=== PATIENT | male | born 1955 | race Caucasian/White ===

== ENCOUNTER → 2016-12-08 | Outpatient (CLI) | payer OTHER ==
[~2016-12-08] MED LIST: ALBUTEROL SULF0.5 M1 NEB; ALBUTEROL SULFAT6 M1 INH; ASPIRIN81 M1 PO; CARTIA XT180 MG PO; CELEBREX100 MG PO; CELEBREX200 MG PO; DIGOXIN0.25 MG PO; DILTIAZEM180 MG PO; DULE1ARO INH; DULE1ARO1 INH; DYAZIDE 25 MG-31 CAP PO; Diltiazem180 MG PO; ECOTRIN81 M1 PO; GABAPENTIN TAB600 MG PO; GABAPENTIN600 MG PO; HYDROCODONE BIT1 T11 PO; JALYN 0.5-0.41 EACH PO; JALYN PO; LIPITOR40 MG PO; LISINOPRIL HCTZ1 TA1 PO; LISINOPRIL20 MG PO; LISINOPRIL40 MG PO; MECLIZINE HCL25 M2 PO; METFORMIN500 MG PO; METOPROLOL25 MG PO; Meclizine25 MG PO; PRADAXA150 MG PO; TOVIAZ8 MG PO; TRAMADOL HCL50 MG PO; VIBRAMYCIN100 MG PO; VICTOZA; XARE20MG PO; ZOFRAN4 MG PO
== END | disposition home or self-care (01) ==
LOC: RAD 15:19
DX: M51.36 Other intervertebral disc degeneration, lumbar region (principal)

== ENCOUNTER 2017-01-25 08:43 | Emergency (ER) | payer OTHER ==
[~2017-01-25] VITALS: Ht 172.7 cm; Wt 136.1 kg
[2017-01-25] MEDS ORDERED: Diltiazem180 MG PO (09:16)
[2017-01-25] MEDS ORDERED: Percocet 325 MG1 TAB PO (09:19)
[2017-01-25 09:46] LABS: BASO % 0.6 % (0.0-1.0); EOS # 0.3 10*3/uL (0.0-0.4); EOS % 3.5 % (1.0-4.0); HEMATOCRIT 39.1 % (42.0-52.0); HEMOGLOBIN 12.8 g/dl (14.0-18.0); LYMPH # 1.4 10*3/uL (1.3-4.4); MEAN CELL VOLUME 87.5 fl (80.0-94.0); MEAN CORPUSCULAR HGB 28.6 pg (27.0-31.0); MEAN CORPUSCULAR HGB CONC 32.7 g/dl (33.0-37.0); MONO # 0.4 10*3/uL (0.1-1.0); NEUT # 4.9 10*3/uL (2.3-7.9); NEUT % 69.3 % (47.0-73.0); PLATELET COUNT AUTOMATED 320 10*3/uL (130-400); RED BLOOD COUNT 4.47 10*6/uL (4.50-5.90); RED CELL DISTRI WIDTH 14.6 % (0-14.5); WHITE BLOOD COUNT 7.1 10*3/uL (4.8-10.8)
[2017-01-25 10:03] LABS: ALBUMIN 2.9 gm/dl (3.1-4.5); ALKALINE PHOSPHATASE 75 U/L (45-117); BUN 10 mg/dl (7-24); CHLORIDE 105 mmol/L (98-107); CREATININE 0.75 mg/dL (0.70-1.30); SGOT/AST 13 IU/L (3-35); SGPT/ALT 15 U/L (12-78); SODIUM 140 mmol/L (136-145); TOTAL PROTEIN 6.6 gm/dL (6.4-8.2)
[2017-01-25 11:41] VITALS: BP 138/86
== END 2017-01-25 12:01 | disposition home or self-care (01) ==
LOC: ED 08:43
PROVIDERS: Nurse Practitioner Family
DX: R51 Headache (principal); Z87.891 Personal history of nicotine dependence; Z95.0 Presence of cardiac pacemaker; Z98.890 Other specified postprocedural states; Z90.89 Acquired absence of other organs; Z79.899 Other long term (current) drug therapy; Z79.82 Long term (current) use of aspirin

== ENCOUNTER 2018-04-25 15:42 | Inpatient (IN) | payer MEDICARE, OTHER ==
[~2018-04-25] VITALS: Ht 175.2 cm; Wt 138.9 kg
--- NOTE | ~2018-04-25 | DS ---
[place], [place] DISCHARGE SUMMARY NAME: WALTER SOSA UNIT #: [id number] ROOM: 518 DOCTOR: HARSHAD DESOUZA MD BIRTHDATE: [birth year] DOS: 04/28/2018 DISCHARGE DIAGNOSES: 1. Benign essential hypertension. 2. Hypotensive episode. 3. Hypovolemia from viral syndrome. 4. Type 2 diabetes mellitus. 5. Morbid obesity. 6. Chronic atrial fibrillation. 7. Diabetic peripheral polyneuropathy. 8. Type 2 diabetes mellitus. 9. Chronic lower back pains. 10. Mixed hyperlipidemia. 11. Pacemaker placement. 12. Sleep apnea. The patient uses CPAP. 13. Asthma, persistent, moderate. HOSPITAL COURSE: The patient presented with dizziness, feeling sick and weak and unwell and he was found to be hypotensive with a blood pressure of 87/50. The patient admitted and his blood pressure medications were discontinued initially. Later on, metoprolol was and lisinopril was reintroduced and his blood pressures are normal, but staying on the lower normal side. The patient is starting to feel much better and was evaluated by Cardiology and cleared for discharge to home without the Cardizem. The patient is feeling much better and will be discharged to home. 1. Morbid obesity, generalized, adult failure to thrive. The patient worked with physical therapy. 2. Chronic atrial fibrillation. The patient anticoagulated and heart rates are controlled with metoprolol. 3. Pacemaker placement. 4. Persistent asthma, moderate, treated with bronchodilators. 5. Mixed hyperlipidemia, followed and treated. LABORATORY DATA: Normal serum electrolytes, hemoglobin of 12. Normal CBC. Chest x-ray without acute abnormality. DISCHARGE MANAGEMENT: Metoprolol 25 mg b.i.d., Tylenol p.r.n., Formoterol steroid inhaler twice a day, aspirin 81 mg a day, metformin 500 mg b.i.d., DuoNeb q.i.d., Pulmicort 0.5 mg b.i.d., gabapentin 600 mg q.i.d., Xarelto 20 mg a day. Followup at the office with me next week. [place], [place] DISCHARGE SUMMARY NAME: WALTER SOSA UNIT #: [id number] ROOM: 518 DOCTOR: HARSHAD DESOUZA MD BIRTHDATE: [birth year] HARSHAD DESOUZA MD CM:ZAK [id number] HARSHAD DESOUZA MD 05/08/18 0843 interface
--- NOTE | ~2018-04-25 | WRIGHTHP ---
[place], [place] PATIENT HISTORY AND PHYSICAL EXAM NAME: WALTER SOSA [facility] #: [id number] UNIT #: [id number] ROOM: 518 DOCTOR: HARSHAD DESOUZA MD BIRTHDATE: [birth year] DOS: 04/25/2018 HISTORY OF PRESENT ILLNESS: The patient presented to my office yesterday feeling sick, dizzy, weak and unwell and he was found to be hypotensive with the systolic blood pressure of 87 over diastolic of 50. The patient was admitted on suspicion of hypotension, sepsis and feeling sick and his blood pressure medications were stopped and he was admitted and started on hydration on normal saline. A Cardiology consult has been obtained. Cardiac enzymes were ordered. After admission, the patient is starting to feel better and has been working with physical therapy. PAST MEDICAL HISTORY: 1. Diabetic peripheral polyneuropathy. 2. Type 2 diabetes mellitus. 3. Morbid obesity. 4. Mixed hyperlipidemia. 5. Chronic lower back pains. 6. Pacemaker placement. 7. Benign essential hypertension. 8. Sleep apnea. 9. Chronic atrial fibrillation. 10. Asthma, which is persistent, mild to moderate. REVIEW OF SYSTEMS: CARDIOVASCULAR: No chest pains, but the patient is hypotensive. RESPIRATORY: No increasing shortness of breath. GASTROINTESTINAL: No nausea, vomiting, diarrhea, constipation. FAMILY HISTORY: Noncontributory. MEDICATIONS: Aspirin, metformin, Xarelto, diltiazem, Lipitor, lisinopril, metformin. PHYSICAL EXAMINATION: GENERAL: Alert and oriented x 3, generalized weakness and morbid obesity. VITAL SIGNS: Blood pressure 110/68, heart rate 88 beats per minute, breathing 18 times per minute, temperature 98 degrees Fahrenheit. HEENT AND NECK: Extraocular movements are intact. Sclerae are anicteric. Oral mucosa is moist and clean. No obvious facial weakness. Neck is supple without any lymphadenopathy. No thyromegaly. No JVD. No carotid arterial bruits. LUNGS: Clear to auscultation. No wheezing. No rhonchi. CARDIOVASCULAR SYSTEM: Heart rate is regular in rate and rhythm. S1 and S2 normally audible. No significant murmur or any other abnormal cardiac sounds. ABDOMEN: Soft, nontender. No obvious organomegaly. Bowel sounds are present. No obvious herniation. EXTREMITIES: Without significant cyanosis or edema. Warm to touch. CENTRAL NERVOUS SYSTEM: Alert and oriented x 3. Cranial nerves II-XII are intact. Speech is normal. The patient is able to move all extremities. Normal muscle strength. Deep tendon reflexes are equal on both sides. Plantars were downgoing. [place], [place] PATIENT HISTORY AND PHYSICAL EXAM NAME: WALTER SOSA UNIT #: [id number] ROOM: 518 DOCTOR: HARSHAD DESOUZA MD BIRTHDATE: [birth year] IMPRESSION: 1. Significant hypotension. Blood pressure medications have been stopped and Cardiology consult obtained. No signs of acute myocardial infarction so far. 2. Suspected sepsis with no signs of sepsis. The patient apparently was hypovolemic and is being treated with normal saline infusion. I will give him 1 more liter of normal saline today. All of his blood pressure medications are on hold. 3. Benign essential hypertension with blood pressure staying on the low side, all blood pressure medications have been held back. 4. Chronic atrial fibrillation. The patient is anticoagulated with Xarelto. Heart rates are controlled. HARSHAD DESOUZA MD CM:HISPHYS:PATIENT HISTORY AND PHYSICAL EXAMINATION [id number] HARSHAD DESOUZA MD 05/08/18 0842 interface
--- NOTE | ~2018-04-25 | CON ---
[place], [place] REPORT OF CONSULTATION [id number] UN[facility] #: [id number] ROOM: 518 DOCTOR: ALIZA DOUGHERTY MD BIRTHDATE: [birth year] DOS: 04/26/2018 CARDIOLOGY CONSULTATION REASON FOR CONSULTATION: Low blood pressure. HISTORY: The patient is a 63-year-old man who had previously been followed by the [facility]. He was found to have atrial fibrillation with both fast and slow heart rate responses. He was anticoagulated, placed on rate limiting medications, and given a VVI pacemaker. Reportedly, this is a [employer] device. He was subsequently lost to their followup. He was hospitalized at the [facility] in 03/2018 for atypical chest pain. A pharmacologic stress test done at that time showed normal left ventricular size, wall motion and function with an ejection fraction of 82% and no evidence for ischemia. The patient was otherwise well until the last several days. He began feeling weak, lightheaded and tired. He developed a nonproductive cough. He denied fevers, chills or sweats and denied any peripheral edema, orthopnea or PND. He was seen as an outpatient by Dr. Campbell who noted that his blood pressure was 87/50. He was therefore hospitalized for further management. He was treated for SIRS with a fluid bolus. In addition, his antihypertensive medications were withheld. He was not placed on antibiotics. With fluid resuscitation, he does feel better, although his cough remains. His blood pressure has improved. PAST HISTORY: Includes: 1. Paroxysmal atrial fibrillation with fast and slow heart rate response (tachybrady syndrome). 2. Type 2 diabetes mellitus. 3. Hyperlipidemia. 4. Essential hypertension. 5. Morbid obesity. 6. Obstructive sleep apnea, on CPAP. 7. Status post placement of a single chamber VVI pacemaker several years ago. 8. Echocardiogram on 06/09/2016, normal left ventricular size, wall motion and function with ejection fraction 55-60%. Sigmoid septum, stage 2 diastolic relaxation abnormalities, normal right ventricular size and function. Marked left atrial enlargement, trace aortic insufficiency. Normal mitral valve structure and function, mild tricuspid insufficiency with normal right ventricular systolic pressures. 9. Pharmacologic stress test on 03/29/2018, normal left ventricular size, wall motion and function with ejection fraction over 75%. Normal perfusion low risk exam. 10. History of type 2 diabetes mellitus with peripheral neuropathy. 11. Morbid obesity. 12. Hyperlipidemia. 13. Essential hypertension. MEDICATIONS: Prior to admission, Dulera by inhalation q. 12 hours, aspirin 81 [place], [place] REPORT OF CONSULTATION NAME: WALTER SOSA UNIT #: [id number] ROOM: 518 DOCTOR: ALIZA DOUGHERTY MD BIRTHDATE: [birth year] mg daily, atorvastatin 40 mg daily, diltiazem CD 180 mg b.i.d., Flavia 0.5/0.4 capsules daily, gabapentin 600 mg q.i.d., lisinopril with hydrochlorothiazide 1-1/2 tablets daily, metformin 500 mg b.i.d., metoprolol 25 mg b.i.d. and rivaroxaban 20 mg daily. ALLERGIES: The patient has no known drug allergies. FAMILY HISTORY: Negative for early coronary artery disease. REVIEW OF SYSTEMS: The patient denies diplopia or loss of vision. He denies focal weakness. He denies lightheadedness or syncope, but he has been weak and unsteady for the last several days. He denies fevers, chills or sweats. He denies nausea or vomiting. He denies change in bowel or bladder habits. He denies hemoptysis or hematemesis. He denies any skin rashes. He denies blood in his stools or urine. He denies any peripheral edema. He denies any hot or swollen joints. The remainder review of systems is negative except as noted above. SOCIAL HISTORY: The patient does not currently smoke or consume significant amounts of alcohol. PHYSICAL EXAMINATION: GENERAL: The patient is an obese white male who is awake, alert and oriented. VITAL SIGNS: Pulse is 88 and irregular, blood pressure is 110/68. He is afebrile. He weighs 138.9 kg and has a body mass index of 45.3. HEENT: Normocephalic and atraumatic. Extraocular muscles are intact. Sclerae are clear. Pupils are equal, round and react to light. The oral mucosa is moist. Tongue is midline. NECK: Supple. He has no jugular distention or hepatojugular reflux. Carotids are full. There are no bruits. He has no neck or supraclavicular masses and no thyromegaly. LUNGS: Respirations are unlabored. His chest has decreased breath sounds at the bases, but no wheezes or rales. He has no presacral edema or chest wall tenderness. CARDIOVASCULAR: His heart has a relatively regular rhythm with frequent premature contractions. No murmurs, rubs or gallops are heard. The PMI is not displaced. There is no precordial heave, lift or thrill. ABDOMEN: Obese, but otherwise benign, without masses, organomegaly or bruits. EXTREMITIES: Showed no significant edema. He does have hyperpigmented plaques on his shins bilaterally. Pedal pulses were markedly diminished in the feet. DIAGNOSTIC DATA: I reviewed his electrocardiogram, which showed atrial fibrillation with an occasional paced beat. He has nonspecific ST and T-wave changes, but no acute ST elevation. Chest x-ray is pending. LABORATORY DATA: Hemoglobin is 13.5 with a white count of 9100 and a platelet count of 411,000. Sodium is 138, potassium 3.7, chloride 104, CO2 of 25, BUN 24, creatinine 1.10. Serial troponin levels are normal. [place], [place] REPORT OF CONSULTATION NAME: WALTER SOSA UNIT #: [id number] ROOM: 518 DOCTOR: ALIZA DOUGHERTY MD BIRTHDATE: [birth year] IMPRESSIONS: 1. Hypotension. The patient shows no signs of heart failure, anemia, or any recent change in his medications. He may have been dehydrated on admission, but has received fluid boluses and now appears euvolemic. With his history of several days of malaise along with a cough, it is likely that this does represent a viral syndrome. 2. History of tachybrady syndrome with permanent atrial fibrillation and presence of VVI pacemaker. 3. Diabetes. 4. Hypertension. 5. Obstructive sleep apnea, on CPAP. 6. Morbid obesity. 7. Hyperlipidemia. 8. Other diagnoses as listed above. PLAN: The patient has already received fluid boluses and seems to be feeling well. We will obtain a chest x-ray to assess for causes of his cough. His recent stress test showed normal left ventricular size and function and an echocardiogram a year ago showed no significant structural heart disease, so one will not be repeated now unless he shows changes on his chest x-ray, which indicate further evaluation. For now, I think that supportive care is appropriate. We will reintroduce his beta daria and monitor his blood pressure. If he tolerates that, then we will reintroduce diltiazem in order to continue to control his heart rate. We will follow him with his primary physicians and I thank Dr. Campbell for asking our advice regarding his management. ALIZA DOUGHERTY MD CM:CONSTR:REPORT OF CONSULTATION 1303 04/26/18 1755 interface
--- NOTE | ~2018-04-25 | PR ---
[place], [place] PROGRESS NOTE [id number] UNIT #: [id number] ROOM: 518 DOCTOR: HARSHAD DESOUZA MD BIRTHDATE: [birth year] DOS: 04/27/2018 SUBJECTIVE: The patient is feeling much better. His weakness has improved. OBJECTIVE: VITAL SIGNS: Blood pressure 134/86, heart rate of 86 beats per minute, afebrile. GENERAL APPEARANCE: The patient is alert and oriented x 3, in no visible distress. Obesity. HEENT AND NECK: Exam within normal limits. CARDIOVASCULAR SYSTEM: Heart rate is regular in rate and rhythm. S1 and S2 normally audible. LUNGS: Clear to auscultation. ABDOMEN: Soft, nontender. No obvious organomegaly. Bowel sounds are present. EXTREMITIES: Without significant cyanosis or edema. SKIN: Chronic skin changes in his lower extremities. IMPRESSION: 1. Benign essential hypertension, treated and controlled. Diltiazem held back for hypotension. 2. Hypotension, resolved with stopping diltiazem, metoprolol was restarted. 3. Probable viral syndrome. Generalized weakness, improving with treatment. 4. Type 2 diabetes mellitus. Blood sugars being monitored and treated. 5. Chronic atrial fibrillation with controlled heart rates with metoprolol. The patient anticoagulated with Xarelto. HARSHAD DESOUZA MD CM:PNTRANS 06 52 HARSHAD DESOUZA MD 04/27/181951 interface
--- NOTE | ~2018-04-25 | PR ---
[place], [place] PROGRESS NOTE NAME: WALTER SOSA [facility] #: [id number] UNIT #: [id number] ROOM: 518 DOCTOR: ALIZA DOUGHERTY MD BIRTHDATE: [birth year] DOS: 04/27/2018 CARDIOLOGY PROGRESS NOTE SUBJECTIVE: The patient was seen at his bedside today 04/27/2018 for followup of his sick sinus syndrome, permanent atrial fibrillation, and VVI pacemaker. He is a 63-year-old man who had previously been followed by the [facility]. He was admitted to the hospital on this occasion with malaise, symptoms of a viral infection, and hypotension. He has responded to fluid boluses and withdrawal of blood pressure lowering medications. Yesterday, I did reintroduce his beta daria and he is tolerating that without difficulty. He is feeling better and anxious for discharge. 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 He asked if we could arrange for his cardiac and pacer followup locally. PHYSICAL EXAMINATION: VITAL SIGNS: Today, his pulse is 77 and irregularly irregular, blood pressure is 110/76. He is afebrile. He weighs 138.9 kg and has a body mass index of 45.3. NECK: Supple. He has no jugular distention. Carotids are full without bruits. He has no neck or supraclavicular masses. LUNGS: Respirations are unlabored. His chest is clear to auscultation and percussion. HEART: Has an irregularly irregular rhythm without murmurs or gallops. ABDOMEN: Benign. EXTREMITIES: Showed no edema. Peripheral pulses are palpable in the feet. He does have hyperpigmented plaques on his shins bilaterally. LABORATORY DATA: Hemoglobin is 12.6, white count 7900, platelet count 393,000. Sodium 143, potassium 4.8, BUN 20, creatinine 0.97. IMPRESSION: 1. Hypotension, most likely due to viral syndrome -- resolved. 2. History of tachybrady syndrome with permanent atrial fibrillation and presence of a VVI pacemaker. 3. Type 2 diabetes mellitus. 4. Hypertension. 5. Obstructive sleep apnea, on CPAP. 6. Morbid obesity. 7. Hyperlipidemia. PLAN: I would not make any changes in his medications further at this time. For now, I would keep him on beta blockers alone for rate control and withhold diltiazem unless his heart rate increases as an outpatient. He will continue anticoagulation with rivaroxaban for stroke prophylaxis. From my perspective, he can be discharged to home and should follow up with us in the office in 1-2 months. We can arrange for him to have pacer checks either locally or in [place] after that. [place], [place] PROGRESS NOTE NAME: WALTER SOSA UNIT #: [id number] ROOM: 518 DOCTOR: FARHAT LAND,ALIZA BIRTHDATE: [address] Campbell for asking our advice regarding his care. We will remain available during this hospitalization if needed. He may be discharged any time from our perspective, however. ALIZA DOUGHERTY MD CM:PNTRANS [id number] ALIZA DOUGHERTY MD 04/27/18 1259 interface
--- NOTE | ~2018-04-25 | EKG ---
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
[~2018-04-25 15:42] MED LIST changes: +Percocet 325 MG1 TAB PO
[2018-04-25 16:27] VITALS: BP 109/68
--- NOTE | 2018-04-25 16:30 | NUR ---
CCADMA 63, admitted to , under the services of Dr. LYLY LAND,HARSHAD Cardoza with a diagnosis of HYPOTENSION. Chief complaint is DENIES C/O. Patient arrived via wheel chair from [place]. Monitor applied. Initial assessment completed. Vital signs taken and recorded. DR. LYLY LAND,HARSHAD Cardoza notified of admission to the unit. Orders received. See assessment for past medical history, medications and allergies. Patient and/or family oriented to unit. [facility] visitation policy reviewed. Clothing/patient valuable form completed. MELQUIADES MODI
--- NOTE | 2018-04-25 17:09 | NUR ---
DR. GRAHAM NOTIFIED OF CONSULT.
[2018-04-25 20:00] VITALS: BP 107/67
[2018-04-26] VITALS: BP 109/64
[2018-04-26 08:02] LABS: BASO # 0.1 10*3/uL (0.0-0.1); BASO % 0.7 % (0.0-1.0); EOS # 0.2 10*3/uL (0.0-0.4); EOS % 2.1 % (1.0-4.0); HEMATOCRIT 41.7 % (42.0-52.0); HEMOGLOBIN 13.5 g/dl (14.0-18.0); LYMPH # 3.1 10*3/uL (1.3-4.4); LYMPH % 33.6 % (27.0-41.0); MEAN CELL VOLUME 86.7 fl (80.0-94.0); MEAN CORPUSCULAR HGB 28.1 pg (27.0-31.0); MEAN CORPUSCULAR HGB CONC 32.4 g/dl (33.0-37.0); MONO # 0.6 10*3/uL (0.1-1.0); MONO % 6.6 % (3.0-9.0); NEUT # 5.2 10*3/uL (2.3-7.9); NEUT % 56.6 % (47.0-73.0); PLATELET COUNT AUTOMATED 411 10*3/uL (130-400); RED BLOOD COUNT 4.81 10*6/uL (4.50-5.90); RED CELL DISTRI WIDTH 13.7 % (0-14.5); WHITE BLOOD COUNT 9.1 10*3/uL (4.8-10.8)
[2018-04-26 08:25] LABS: BUN 24 mg/dl (7-24); CHLORIDE 104 mmol/L (98-107); POTASSIUM 3.7 mmol/L (3.5-5.1); SODIUM 138 mmol/L (136-145)
--- NOTE | 2018-04-26 09:00 | NUR ---
Molder Fitting in to talk to patient. Patient states lives at home with . There are few steps in the home. Physician: luz marina [facility]acy: [facility] Home health services: none Patient's level of ADLs: INDEPENDENT Patient has working utilities: all working DME: ane, cpap, o2 [employer] Follow-up physician's appointment after d/c: will be made by hospitalist nurse director upon discharge Does patient want to access PORTAL?: no Discharge plan discussed with patient, patient lives at home with , he states he is independent in adls and ambulation, discussed with rylee snider a short term nursing home for rehab prior to going back home, patient declined, also discussed with him VNA and he also declined this, case management will follow for any home needs. LISA FIGUEREDO
[2018-04-26 09:50] VITALS: BP 110/68
[2018-04-26 12:00] VITALS: BP 115/67
[2018-04-26 16:00] VITALS: BP 122/67
--- NOTE | 2018-04-26 18:26 | NUR ---
PHYSICAL THERAPY ATTEMPTED TO SEE PATIENT THIS PM FOR EVALUATION BUT HE WAS SLEEPING SOUNDLY AND THEREFORE WILL POSTPONE PT EVAL UNTIL TOMORROW. THANK YOU FOR REFERRAL AIDAN DUEÑAS PT
--- NOTE | 2018-04-26 18:38 | NUR ---
CHEST XRAY VIA WHEELCHAIR
[2018-04-26 20:00] VITALS: BP 110/78
[2018-04-27] VITALS: BP 101/60
--- NOTE | 2018-04-27 04:32 | NUR ---
CEPACOL GIVEN FOR C/O SORE THROAT.
[2018-04-27 07:34] LABS: BASO # 0.1 10*3/uL (0.0-0.1); BASO % 0.8 % (0.0-1.0); EOS # 0.3 10*3/uL (0.0-0.4); EOS % 3.7 % (1.0-4.0); HEMATOCRIT 40.6 % (42.0-52.0); HEMOGLOBIN 12.6 g/dl (14.0-18.0); LYMPH # 1.8 10*3/uL (1.3-4.4); LYMPH % 22.2 % (27.0-41.0); MEAN CELL VOLUME 88.1 fl (80.0-94.0); MEAN CORPUSCULAR HGB 27.3 pg (27.0-31.0); MONO # 0.7 10*3/uL (0.1-1.0); MONO % 8.4 % (3.0-9.0); NEUT # 5.1 10*3/uL (2.3-7.9); NEUT % 64.4 % (47.0-73.0); PLATELET COUNT AUTOMATED 393 10*3/uL (130-400); RED BLOOD COUNT 4.61 10*6/uL (4.50-5.90); RED CELL DISTRI WIDTH 14.3 % (0-14.5); WHITE BLOOD COUNT 7.9 10*3/uL (4.8-10.8)
[2018-04-27 07:48] LABS: BUN 20 mg/dl (7-24); CHLORIDE 108 mmol/L (98-107); CREATININE 0.97 mg/dL (0.70-1.30); SODIUM 143 mmol/L (136-145)
[2018-04-27 07:50] LABS: POTASSIUM 4.8 mmol/L (3.5-5.1)
[2018-04-27 08:00] VITALS: BP 110/76
--- NOTE | 2018-04-27 08:00 | NUR ---
PT RESTING IN BED, NO COMPLAINTS VOICED AT THIS TIME.
--- NOTE | 2018-04-27 09:00 | NUR ---
case management visits with patient, patient states he will be going home when able and denies any home needs
[2018-04-27 12:00] VITALS: BP 131/73
--- NOTE | 2018-04-27 15:59 | NUR ---
MEDICATED WITH TYLENOL PER PRN ORDER FOR COMPLAINTS OF HEADACHE. WILL MONITOR FOR EFFECTIVENESS.
[2018-04-27 16:00] VITALS: BP 134/86
[2018-04-27 20:00] VITALS: BP 119/65
[2018-04-28] VITALS: BP 124/75
[2018-04-28 06:33] LABS: BASO # 0.1 10*3/uL (0.0-0.1); BASO % 0.9 % (0.0-1.0); EOS # 0.6 10*3/uL (0.0-0.4); EOS % 6.7 % (1.0-4.0); HEMATOCRIT 38.2 % (42.0-52.0); LYMPH # 1.4 10*3/uL (1.3-4.4); LYMPH % 15.3 % (27.0-41.0); MEAN CELL VOLUME 87.2 fl (80.0-94.0); MEAN CORPUSCULAR HGB 27.4 pg (27.0-31.0); MEAN CORPUSCULAR HGB CONC 31.4 g/dl (33.0-37.0); MEAN PLATELET VOLUME 9.2 fl (9.6-12.3); MONO # 0.8 10*3/uL (0.1-1.0); MONO % 8.3 % (3.0-9.0); NEUT # 6.4 10*3/uL (2.3-7.9); NEUT % 68.4 % (47.0-73.0); PLATELET COUNT AUTOMATED 390 10*3/uL (130-400); RED BLOOD COUNT 4.38 10*6/uL (4.50-5.90); RED CELL DISTRI WIDTH 14.2 % (0-14.5); WHITE BLOOD COUNT 9.3 10*3/uL (4.8-10.8)
[2018-04-28 07:11] LABS: BUN 18 mg/dl (7-24); CHLORIDE 108 mmol/L (98-107); CREATININE 0.89 mg/dL (0.70-1.30); POTASSIUM 4.3 mmol/L (3.5-5.1); SODIUM 142 mmol/L (136-145)
--- NOTE | 2018-04-28 07:29 | NUR ---
MEDICATED WITH TYLENOL PER PRN ORDER FOR COMPLAINTS OF HEADACHE. WILL MONITOR FOR EFFECTIVENESS.
[2018-04-28 08:00] VITALS: BP 102/60
--- NOTE | 2018-04-28 09:00 | NUR ---
case management visits withpatient, patient denies any needs at this time
[2018-04-28 12:00] VITALS: BP 121/74
--- NOTE | 2018-04-28 13:31 | NUR ---
Discharge instructions reviewed with patient/family. Patient receptive and verbalizes understanding. Follow-up care arranged. Written instructions given to patient/family. IV site and case monitor removed. Pt trasnported to lobby via wheelchair. LETICIA BEAN
--- NOTE | 2018-04-29 13:29 | NUR ---
PHYSICAL THERAPY PT RIAN ATTEMPTED 04/28/18 BUT PATIENT BEING DISCHARGED. THANK YOU FOR REFERRAL AIDAN DUEÑAS PT
== END 2018-04-28 13:31 | disposition home or self-care (01) | DRG 315 ==
LOC: 5E 15:42
PROVIDERS: ADMIT Internal Medicine
DX: I95.9 Hypotension, unspecified (principal); Z68.42 Body mass index [BMI] 45.0-49.9, adult; I10 Essential (primary) hypertension; B34.9 Viral infection, unspecified; E86.1 Hypovolemia; E66.01 Morbid (severe) obesity due to excess calories; E11.42 Type 2 diabetes mellitus with diabetic polyneuropathy; I48.0 Paroxysmal atrial fibrillation; M54.5 Low back pain; J45.40 Moderate persistent asthma, uncomplicated; G47.33 Obstructive sleep apnea (adult) (pediatric); G89.29 Other chronic pain; E78.2 Mixed hyperlipidemia; I48.2 Chronic atrial fibrillation; Z79.01 Long term (current) use of anticoagulants; Z95.0 Presence of cardiac pacemaker

== ENCOUNTER 2018-06-01 14:38 | Inpatient (IN) | payer MEDICARE, OTHER ==
[~2018-06-01] VITALS: Ht 175.3 cm; Wt 138.1 kg
--- NOTE | ~2018-06-01 | EKG ---
[place], [place] ELECTROCARDIOGRAM REPORT NAME: WALTER SOSA UNIT #: [id number] ROOM: 516 DOCTOR: EPIPHANY DRAFT REPORT BIRTHDATE: [birth year] [facility] Test Date: 2018-06-05 Test Time: 00:35:23 Pat Name: WALTER SOSA Department: Room: 516 1 Gender: M Manager Of Data: Dennise Layne : 1955 Requested By: HARSHAD DESOUZA Order Number: [id number] Reading MD: Joe Loomis MD Measurements Intervals [place] Rate: 70 P: [place]: QRS: 39 QRSD: 105 T: -2 QT: 385 QTc: 416 Interpretive Statements Afib/flut and V-paced complexes No further rhythm analysis attempted due to paced rhythm Compared to ECG 04/26/2018 12:52:44 T-wave abnormality no longer present Possible ischemia no longer present Electronically Signed On 06-05-2018 4:29:45 PST by Joe Loomis MD CM:EKGRPT:ELECTROCARDIOGRAM REPORT [id number] 0429 HARSHAD DESOUZA MD EPIPHANY DRAFT REPORT HARSHAD DESOUZA MD
--- NOTE | ~2018-06-01 | WRIGHTHP ---
[place], [place] PATIENT HISTORY AND PHYSICAL EXAM NAME: WALTER SOSA [facility] #: [id number] UNIT #: [id number] ROOM: 516 DOCTOR: HARSHAD DESOUZA MD BIRTHDATE: [birth year] DOS: 06/01/2018 HISTORY OF PRESENT ILLNESS: The patient is a 63-year-old gentleman with a past medical history of benign essential hypertension, morbid obesity, Type 2 diabetes mellitus, chronic atrial fibrillation, diabetic peripheral polyneuropathy, chronic lower back pains, mixed hyperlipidemia, pacemaker placement, sleep apnea. The patient on CPAP at night. Asthma, persistent, moderate. The patient was seen at the office yesterday and again today with feeling very sick, dizzy, lightheaded and was found to be hypotensive with systolic blood pressure of 77. The patient is already on 3 blood pressure medications and at least partly to control his heart rates. Since the patient was very sick, he agreed for admission to [facility] for further management. The patient was taken off his blood pressure medications and put on a night monitor. After admission, the patient was taken off his blood pressure medications and his heart rate has climbed into 120s, rapid atrial fibrillation after his Cardizem and Lopressor were stopped. The patient is starting to feel better with treatment. He was also hydrated with normal saline. SYSTEMS REVIEW: CARDIOVASCULAR SYSTEM: The patient hypotensive and dizzy, but no fainting episodes. RESPIRATORY: No increasing shortness of breath or wheezing. GASTROINTESTINAL: No nausea, vomiting, diarrhea, constipation. FAMILY HISTORY: Noncontributory. HOME MEDICATIONS: The patient is on Dulera, aspirin, diltiazem, Cymbalta, lisinopril, gabapentin, metformin, metoprolol, Xarelto, tizanidine, tramadol. ALLERGIES: No known drug allergies. PHYSICAL EXAMINATION: GENERAL: Alert, oriented, morbidly obese. VITAL SIGNS: Blood pressure prior to admission was 77 systolic over 55 diastolic at my office, heart rate of 79 beats per minute, afebrile. HEENT AND NECK: Extraocular movements are intact. Sclerae are anicteric. Oral mucosa is moist and clean. No obvious facial weakness. Neck is supple without any lymphadenopathy. No thyromegaly. No JVD. No carotid arterial bruits. LUNGS: Clear to auscultation. No wheezing. No rhonchi. CARDIOVASCULAR SYSTEM: Heart rate is regular in rate and rhythm. S1 and S2 normally audible. No significant murmur or any other abnormal cardiac sounds. ABDOMEN: Soft, nontender. No obvious organomegaly. Bowel sounds are present. No obvious herniation. EXTREMITIES: Without significant cyanosis or edema. Warm to touch. CENTRAL NERVOUS SYSTEM: Alert and oriented x 3. Cranial nerves II-XII are intact. Speech is normal. The patient is able to move all extremities. Normal muscle strength. Deep tendon reflexes are equal on both sides. Plantars were [place], [place] PATIENT HISTORY AND PHYSICAL EXAM [id number] #: [id number] ROOM: 516 DOCTOR: HARSHAD DESOUZA MD BIRTHDATE: [birth year] downgoing. IMPRESSION AND PLAN: 1. The patient with hypovolemia and hypotension, also on 3 blood pressure medications to control his heart rate and blood pressures. The patient's blood pressure medication was stopped and he was hydrated with normal saline. The patient's blood pressure has come up, but he is in atrial fibrillation with rapid ventricular response now. I am restarting him on Cardizem to better control his heart rates since his blood pressure is increased. 2. Advance adult failure to thrive, morbid obesity and generalized weakness. The patient to be treated with physical therapy. 3. Morbid obesity with BMI of 45. The patient to work with dietary. 4. Type 2 diabetes mellitus. The patient's blood sugars to be monitored and treated. 5. Pacemaker placement. Pacemaker check was performed. 6. Chronic atrial fibrillation, heart rates to be controlled with diltiazem. The patient anticoagulated with Xarelto. 7. Type 2 diabetes mellitus. The patient kept on a no concentrated sweet diet and metformin. Blood sugars being monitored and treated. 8. Chronic lower back pains, controlled with tramadol, which has been continued. Plan to follow closely. HARSHAD DESOUZA MD CM:HISPHYS:PATIENT HISTORY AND PHYSICAL EXAMINATION 08 19 HARSHAD DESOUZA MD 06/02/[id number] interface
--- NOTE | ~2018-06-01 | PR ---
[place], [place] PROGRESS NOTE [id number] UN[facility] #: [id number] ROOM: 516 DOCTOR: HARSHAD DESOUZA MD BIRTHDATE: [birth year] DOS: 06/04/2018 SUBJECTIVE: Patient continues to feel better, but he is still very weak. OBJECTIVE: VITAL SIGNS: Blood pressure 114/68, heart rate of 58 beats per minute, afebrile. GENERAL APPEARANCE: Morbid obesity. The patient is alert and oriented x 3, in no visible distress. HEENT AND NECK: Exam within normal limits. CARDIOVASCULAR SYSTEM: Heart rate is regular in rate and rhythm. S1 and S2 normally audible. LUNGS: Clear to auscultation. ABDOMEN: Soft, nontender. No obvious organomegaly. Bowel sounds are present. EXTREMITIES: Without significant cyanosis or edema. IMPRESSION: 1. Patient with hypotension, which has resolved with adjustment of his blood pressure medications. 2. Chronic atrial fibrillation with rapid ventricular response, heart rate has improved with use of Lopressor and Cardizem. 3. Hypovolemia and hypotension, resolved with treatment and hydration. 4. Morbid obesity with BMI of 45. Patient working with Dietary. 5. Advance adult failure to thrive. I will try to get him to a [facility] facility for rehabilitation. Patient has difficulty with ambulation. 6. Pacemaker placement. Pacer check performed. 7. Type 2 diabetes mellitus. Blood sugars are monitored and treated. 8. Chronic lower back pains, treated and controlled with tramadol. 9. Chronic atrial fibrillation with controlled heart rates with diltiazem and Lopressor now, patient anticoagulated with Xarelto. 10. Patient with Nicolasa dermatitis in the skin folds of his groin area from moisture, being treated with nystatin. HARSHAD DESOUZA MD CM:PNTRANS [id number] HARSHAD DESOUZA MD 06/05/18 0016 interface
--- NOTE | ~2018-06-01 | PR ---
[place], [place] PROGRESS NOTE [id number] UN[facility] #: [id number] ROOM: 516 DOCTOR: HARSHAD DESOUZA MD BIRTHDATE: [birth year] DOS: 06/03/2018 SUBJECTIVE: The patient has significant headache, which is not resolving with Tylenol. OBJECTIVE: GENERAL APPEARANCE: The patient is alert and oriented x 3, in no visible distress. Morbid obesity. VITAL SIGNS: Blood pressure 120/60, heart rate 66 beats per minute, breathing 20 times per minute, temperature 98 degrees Fahrenheit. HEENT AND NECK: Exam within normal limits. CARDIOVASCULAR SYSTEM: Heart rate is regular in rate and rhythm. S1 and S2 normally audible. LUNGS: Clear to auscultation. ABDOMEN: Soft, nontender. No obvious organomegaly. Bowel sounds are present. EXTREMITIES: Without significant cyanosis or edema. IMPRESSION: 1. The patient with severe hypotension, which resolved with hydration and stopping his medications, but then the patient became tachycardic. 2. Atrial fibrillation with tachycardia, now improved with starting Cardizem orally and is still getting tachycardic with ambulation up to 150 beats per minute, so I will add on small dose of Lopressor to control that. 3. The patient has a severe headache, which is being treated with pain medications. 4. Pacemaker placement. Pacemaker check was performed. 5. Chronic atrial fibrillation. The patient anticoagulated with Xarelto. 6. Chronic lower back pains, treated with tramadol and Tylenol. 7. Advance adult failure to thrive. The patient is working with physical therapy, he is morbidly obese. 8. Morbid obesity with BMI of 45. The patient is working with dietary. HARSHAD DESOUZA MD CM:PNTRANS [id number] HARSHAD DESOUZA MD 06/04/18 0331 interface
--- NOTE | ~2018-06-01 | PR ---
[place], [place] PROGRESS NOTE [id number] UN[facility] #: [id number] ROOM: 516 DOCTOR: HARSHAD DESOUZA MD BIRTHDATE: [birth year] DOS: 06/05/2018 SUBJECTIVE: The patient is still quite weak and unstable on his feet, on physical therapy. OBJECTIVE: VITAL SIGNS: Blood pressure 134/79, heart rate 75 beats per minute, breathing 20 times per minute, temperature 98 degrees Fahrenheit. GENERAL APPEARANCE: The patient is alert and oriented x 3, in no visible distress. HEENT AND NECK: Exam within normal limits. CARDIOVASCULAR SYSTEM: Heart rate is regular in rate and rhythm. S1 and S2 normally audible. LUNGS: Clear to auscultation. ABDOMEN: Soft, nontender. No obvious organomegaly. Bowel sounds are present. EXTREMITIES: Without significant cyanosis or edema. IMPRESSION: 1. Patient with hypotension. Blood pressures are somewhat improved, but they still go below 100 systolic, being followed by Cardiology. 2. Paroxysmal atrial fibrillation with rapid ventricular response, now better controlled with Lopressor and Cardizem. Patient remains on the coke oven mason. 3. Cardiac stress test performed by Cardiology this morning was without any acute ischemia. 4. Hypovolemia and hypotension, treated with hydration with IV fluids. 5. Advance adult failure to thrive. Patient still unsteady on his feet and I am trying to get him to rehabilitation for continued care. 6. Pacemaker placement, which was rechecked. Pacemaker was checked during the stay at the hospital. 5. Type 2 diabetes mellitus. Blood sugars being monitored and treated. 6. Chronic lower back pains, treated and controlled with tramadol. 7. Nicolasa dermatitis in skin folds due to moisture, is being treated with nystatin cream. HARSHAD DESOUZA MD CM:PNTRANS [id number] HARSHAD DESOUZA MD 06/06/18216 interface
--- NOTE | ~2018-06-01 | DS ---
[place], [place] DISCHARGE SUMMARY NAME: WALTER SOSA [facility] #: [id number] UNIT #: [id number] ROOM: 516 DOCTOR: HARSHAD DESOUZA MD BIRTHDATE: [birth year] DOS: 06/06/2018 DISCHARGE DIAGNOSES: 1. The patient with hypotension. 2. Paroxysmal atrial fibrillation with rapid ventricular response. 3. Pacemaker placement. 4. Type 2 diabetes mellitus. 5. Chronic lower back pains. 6. Nicolasa dermatitis involving skin folds secondary to moisture. 7. Hypovolemia and hypotension. 8. Adult failure to thrive with generalized weakness. 9. Morbid obesity with BMI of 45. 10. Diabetic peripheral polyneuropathy. 11. Mixed hyperlipidemia. 12. Sleep apnea treated with CPAP at home. 13. Benign essential hypertension. HOSPITAL COURSE: The patient was admitted to [facility] when he presented to my office with a systolic blood pressure of 77, feeling very weak, dizzy, lightheaded and unwell and sick. The patient was figured out to be hypovolemic and hypotensive and he was admitted to [facility] on a monitored bed and all of his blood pressure medications were stopped. The patient's blood pressure improved with hydration and holding back the blood pressure medications and started feeling better. IMPRESSION AND PLAN: 1. Atrial fibrillation with rapid ventricular response after his diltiazem and metoprolol was stopped. As his blood pressures improved, his diltiazem and metoprolol were restarted and heart rate is better controlled now with blood pressures normalized. He is feeling better and ambulating to the bathroom. 2. Advanced adult failure to thrive. The patient with failure to thrive, overall poor health, poor personal hygiene and unable to take good care of himself. It was arranged by case management for him to go to [facility] for continued physical therapy and rehabilitation. 3. Morbid obesity and sleep apnea, uses CPAP and BiPAP that was used at the hospital. 4. Morbid obesity. The patient worked with dietary. 5. Type 2 diabetes mellitus. Blood sugars monitored and treated. 6. Pacemaker placement. The patient's pacemaker check was performed during this hospital stay. 7. Chronic atrial fibrillation with better controlled heart rates now and the patient anticoagulated with Xarelto. 8. Chronic lower back pains treated and controlled with tramadol as needed. LABORATORY DATA: Arterial Dopplers of lower extremities showing no critical stenosis. DISCHARGE MANAGEMENT: Diltiazem CD 180 mg a day, metoprolol 25 mg b.i.d., Xarelto 20 mg a day, Tylenol 1000 mg every 8 hours p.r.n. for pain and fever, metoprolol 500 mg b.i.d., tramadol 50 mg q.i.d. p.r.n. for pain, Monistat-Derm [place], [place] DISCHARGE SUMMARY [facility]: [id number] #: [id number] ROOM: 516 DOCTOR: HARSHAD DESOUZA MD BIRTHDATE: [birth year] cream into skin folds. Please educate the patient on personal hygiene and regular showers and baths that he requires, which apparently he is not doing at home. The patient can have Ambien 10 mg at bedtime p.r.n. for sleep. Consult physical therapy and occupational therapy. ADDENDUM The patient continues to feel better. PHYSICAL EXAMINATION: GENERAL APPEARANCE: The patient has generalized weakness and morbid obesity. VITAL SIGNS: Blood pressure 143/76, heart rate 79 beats per minute, breathing normally, temperature 98.3 degrees Fahrenheit. HEENT AND NECK: Extraocular movements are intact. Sclerae are anicteric. Oral mucosa is moist and clean. No obvious facial weakness. Neck is supple without any lymphadenopathy. No thyromegaly. No JVD. No carotid arterial bruits. LUNGS: Clear to auscultation. No wheezing. No rhonchi. CARDIOVASCULAR SYSTEM: Heart rate is regular in rate and rhythm. S1 and S2 normally audible. No significant murmur or any other abnormal cardiac sounds. ABDOMEN: Soft, nontender. No obvious organomegaly. Bowel sounds are present. No obvious herniation. EXTREMITIES: Without significant cyanosis or edema. Warm to touch. CENTRAL NERVOUS SYSTEM: Alert and oriented x 3. Cranial nerves II-XII are intact. Speech is normal. The patient is able to move all extremities. Normal muscle strength. Deep tendon reflexes are equal on both sides. Plantars were downgoing. IMPRESSION: 1. Hypotension, improved with treatment. 2. Paroxysmal atrial fibrillation with rapid ventricular response. Heart rates are better controlled with present treatment. 3. Pacemaker placement. 4. Type 2 diabetes mellitus. Blood sugars being monitored and treated. 5. Morbid obesity with BMI of 45. The patient working with dietary. 6. Nicolasa dermatitis with moisture in skin folds related to obesity. The patient is being taught about personal hygiene and also treated with nystatin cream. 7. Chronic lower back pains treated and controlled with tramadol and patient ambulates better with this treatment. He is more functional with opioids. 8. Chronic atrial fibrillation. The patient anticoagulated with Xarelto. 9. Advance adult failure to thrive and ambulatory dysfunction. The patient is going to long-term for rehabilitation. [place], [place] DISCHARGE SUMMARY NAME: WALTER SOSA UNIT #: [id number] ROOM: 516 DOCTOR: HARSHAD DESOUZA MD BIRTHDATE: [birth year] HARSHAD DESOUZA MD CM:ZAK [id number] HARSHAD DESOUZA MD 06/22/18 0758 interface
[2018-06-01 14:50] VITALS: BP 99/52
--- NOTE | 2018-06-01 14:50 | NUR ---
A 63, admitted to , under the services of Dr. LYLY LAND,HARSHAD Cardoza with a diagnosis of HYPOTENSION. Chief complaint is HYPOTENSION. Patient arrived via wheel chair from [place]. Monitor applied. Initial assessment completed. Vital signs taken and recorded. DR. LYLY LAND,HARSHAD Cardoza notified of admission to the unit. Orders received. See assessment for past medical history, medications and allergies. Patient and/or family oriented to unit. [facility] visitation policy reviewed. Clothing/patient valuable form completed. RIKY REYES
[2018-06-01] MEDS ORDERED: TRAMADOL HCL50 MG PO (15:19)
[2018-06-01] MEDS ORDERED: LISINOPRIL-HCT1 EACH PO (15:38)
[2018-06-01] MEDS ORDERED: TIZANIDINE HCL4 M1 PO (15:39)
[2018-06-01] MEDS ORDERED: DILTIAZEM 24HR180 MG PO (15:39)
[2018-06-01] MEDS ORDERED: CYMBALTA60 MG PO (15:40)
--- NOTE | 2018-06-01 15:42 | NUR ---
DR DESOUZA CALLED AND MADE AWARE THAT HOME MEDS ARE UP TO DATE. HE WILL PUT ORDERS IN.
--- NOTE | 2018-06-01 17:00 | NUR ---
DR DESOUZA MADE AWARE OF BRUISING AND SCABS TO L ARM AND DISCOLORATION TO BLLE. NO ORDERS AT THIS TIME.
[2018-06-01 17:45] VITALS: BP 108/56
--- NOTE | 2018-06-01 18:42 | NUR ---
PATIENT HAS ITEMS PLACED IN LOCK BOX. SEE PAPER ON CHART.
--- NOTE | 2018-06-01 19:45 | NUR ---
TOOK OVER CARE OF PT AT THIS TIME. PT RESTING IN BED, EYES OPEN, ALERT ORIENTED AND PLEASANT. ASSESSMENT COMPLETE. NO COMPLAINTS VOICED AT THIS TIME. RESPIRATIONS EASY AND UNLABORED. WILL CONTINUE TO MONITOR. CALL LIGHT IN REACH.
[2018-06-01 20:00] VITALS: BP 136/66
--- NOTE | 2018-06-01 21:04 | NUR ---
PT C/O BACK PAIN, RATES IT 11/15. ULTRAM 50 MG GIVEN PO AT THIS TIME. WILL MONITOR FOR EFFECTIVENESS. CALL LIGHT IN REACH.
--- NOTE | 2018-06-01 22:04 | NUR ---
ULTRAM EFFECTIVE PER PT.
[2018-06-02] VITALS: BP 108/61
--- NOTE | 2018-06-02 05:00 | NUR ---
PT GIVEN ULTRAM AT THIS TIME FOR C/O BACK PAIN AND HEADACHE. WILL MONITOR FOR EFFECTIVENESS.
[2018-06-02 06:51] LABS: BASO # 0.1 10*3/uL (0.0-0.1); BASO % 0.7 % (0.0-1.0); EOS # 0.2 10*3/uL (0.0-0.4); EOS % 2.7 % (1.0-4.0); HEMATOCRIT 40.7 % (42.0-52.0); HEMOGLOBIN 12.8 g/dl (14.0-18.0); LYMPH # 1.6 10*3/uL (1.3-4.4); LYMPH % 21.8 % (27.0-41.0); MEAN CELL VOLUME 87.9 fl (80.0-94.0); MEAN CORPUSCULAR HGB 27.6 pg (27.0-31.0); MEAN CORPUSCULAR HGB CONC 31.4 g/dl (33.0-37.0); MEAN PLATELET VOLUME 9.2 fl (9.6-12.3); MONO # 0.7 10*3/uL (0.1-1.0); MONO % 9.4 % (3.0-9.0); NEUT # 4.9 10*3/uL (2.3-7.9); NEUT % 65.1 % (47.0-73.0); PLATELET COUNT AUTOMATED 370 10*3/uL (130-400); RED BLOOD COUNT 4.63 10*6/uL (4.50-5.90); RED CELL DISTRI WIDTH 14.6 % (0-14.5); WHITE BLOOD COUNT 7.5 10*3/uL (4.8-10.8)
--- NOTE | 2018-06-02 06:58 | NUR ---
PT STATES THAT HE CONTINUES TO HAVE A HEADACHE AND REQUESTS TYLENOL. ATTEMPTED TO REACH DR. DESOUZA VIA CELL. PHYSICIAN DID NOT OPERATIONS TECHNICIAN AT THIS TIME. WILL ATTEMPT TO CALL AGAIN IN FIFTEEN MINUTES.
[2018-06-02 07:03] LABS: BUN 27 mg/dl (7-24); CHLORIDE 105 mmol/L (98-107); CREATININE 1.13 mg/dL (0.70-1.30); POTASSIUM 4.2 mmol/L (3.5-5.1); SODIUM 140 mmol/L (136-145)
--- NOTE | 2018-06-02 07:35 | NUR ---
SPOKE WITH DR DESOUZA REGARDING PT REQUEST FOR TYLENOL FOR HEADACHE. NEW ORDERS RECEIVED, SEE EMAR.
[2018-06-02 08:00] VITALS: BP 110/78
--- NOTE | 2018-06-02 08:15 | NUR ---
PT REQUESTED AND GIVEN TYLENOL FOR C/O HEADACHE WILL MONITOR
--- NOTE | 2018-06-02 09:00 | NUR ---
Senior Business Development Analyst in to talk to patient. Patient states lives at home with his . There are 2 steps in the home. Physician: Dr. Graham Campbell Pharmacy: [facility] Home health services: none Patient's level of ADLs: MINIMAL ASSIST Patient has working utilities: yes DME: cane, O2 @ 2L at HS, c-pap, he is unsure of his O2 supplier Follow-up physician's appointment after d/c: he prefers to make his own follow up appt after discharge Does patient want to access PORTAL?: no Discharge plan discussed with patient. He lives at home with his . He is independent in his ADLs and uses a cane for ambulation. Discussed home health care services and he denies any home needs at this time. He would like to have his pacemaker interrogated. Dr. Campbell notified and new orders received. When medically stable he will be discharged to home. MIKE CORNELIUS
--- NOTE | 2018-06-02 10:00 | NUR ---
PT STATES THAT TYLENOL HELPED WILL MONITOR
[2018-06-02 12:00] VITALS: BP 128/75
[2018-06-02 16:00] VITALS: BP 144/90
--- NOTE | 2018-06-02 19:15 | NUR ---
INFORMED PATIENT DURING BEDSIDE REPORT THAT WE NEEDED TO SWITCH BEDS TO AN AIR MATTRESS, PATIENT STATED "I GET UP AND MOVE I WON'T GET A BEDSORE." AND IS REFUSING TO CHANGE BEDS AT THIS TIME.
[2018-06-02 20:00] VITALS: BP 128/65
--- NOTE | 2018-06-02 20:30 | NUR ---
PATIENT IS AAOX3 RESTING IN BED WITH EASY AND REGULAR RESPERS ON ROOM AIR. ASSESSMENT IS COMPLETE WITH NO S/S OF DISTRESS, PATIENT DOES C/O BACK PAIN RATING A 5/10 AND WAS MEDICATED WITH PRN ULTRAM. PATIENT TOLERATED WELL. BED IS LOW, LOCKED, AND CALL LIGHT IS WITHIN REACH. SEE SHIFT ASSESSMENT.
--- NOTE | 2018-06-02 23:31 | NUR ---
PATIENT MEDICATED WITH ULTRAM FOR COMPLAINTS OF PAIN. WILL CONTINUE TO MONITOR.
[2018-06-03] VITALS: BP 147/93
--- NOTE | 2018-06-03 01:32 | NUR ---
PATIENT GIVEN DULCOLAX SUPPOSITORY FOR COMPLAINTS OF CONSTIPATION. WILL CONTINUE TO MONITOR.
--- NOTE | 2018-06-03 02:27 | NUR ---
PATIENT HAD SMALL BM AT THIS TIME. WILL CONTINUE TO MONITOR.
--- NOTE | 2018-06-03 05:45 | NUR ---
TAPPER BALANCE WHEEL SCREW HOLE CALLED; PT'S HEART RATE IN THE 150'S. UPON CHECKING ON PATIENT HE IS UP TO THE BATHROOM. PT. DENIES CHEST PAIN & ANY OTHER PAIN AT THIS TIME. WILL CONTINUE TO MONITOR. CALL LIGHT WITHIN REACH.
[2018-06-03 07:14] LABS: CHLORIDE 104 mmol/L (98-107); POTASSIUM 3.9 mmol/L (3.5-5.1); SODIUM 138 mmol/L (136-145)
[2018-06-03 07:19] LABS: BUN 23 mg/dl (7-24); CREATININE 0.91 mg/dL (0.70-1.30)
--- NOTE | 2018-06-03 07:35 | NUR ---
ULTRAM 50MG GIVEN PER PATIENT REQUEST FOR BACK PAIN RATING AN 8/10.
[2018-06-03 08:00] VITALS: BP 138/74
--- NOTE | 2018-06-03 08:30 | NUR ---
ULTRAM WAS EFFECTIVE FOR LESSENING THE PAIN PER PATIENT.
--- NOTE | 2018-06-03 11:57 | NUR ---
TYLENOL 1000 GIVEN PER PATIENT REQUEST FOR A HEADACHE RATING A 9/10.
[2018-06-03 12:00] VITALS: BP 114/79
--- NOTE | 2018-06-03 14:05 | NUR ---
TYLENOL NOT EFFECTIVE FOR HEADACHE. ULTRAM 30 MG GIVEN FOR A HEADACHE.
--- NOTE | 2018-06-03 15:00 | NUR ---
PATIENT SLEEPING. NO SIGNS OF DISTRESS. ULTRAM EFFECTIVE.
[2018-06-03 16:00] VITALS: BP 120/65
--- NOTE | 2018-06-03 17:52 | NUR ---
FIORICET TWO TABLETS GIVEN FOR A HEADACHE.
--- NOTE | 2018-06-03 18:24 | NUR ---
PATIENT COMPLAINING OF NAUSEA. DIET GINGERALE AND CRACKERS GIVEN.
[2018-06-03 20:00] VITALS: BP 136/77
--- NOTE | 2018-06-03 20:55 | NUR ---
PRN TYLENOL GIVEN FOR PT COMPLAINTS OF BACK PAIN RATING IT 12/16 CALL LIGHT WITHIN REACH, WILL MONITOR
--- NOTE | 2018-06-03 22:24 | NUR ---
PRN ULTRAM GIVEN FOR PT COMPLAINTS OF CONTINUED BACK PAIN NOT FULLY RELIEVED BY TYLENOL. RATES IT 10/16. CALL LIGHT WITHIN REACH, WILL MONITOR
[2018-06-04] VITALS: BP 122/75
--- NOTE | 2018-06-04 01:22 | NUR ---
CALLED DR. DESOUZA, PATIENT REQUESTING SOMETHING FOR SLEEP. ORDER RECIEVED FOR AMBIEN 10MG PRN HS
--- NOTE | 2018-06-04 01:44 | NUR ---
STEVEN PETERSON GIVEN FOR PT COMPLAINTS OF SLEEPLESSNESS. CALL LIGHT WITHIN REACH, WILL MONITOR
--- NOTE | 2018-06-04 02:45 | NUR ---
PRN MEDICATION APPEARS EFFECTIVE, PT SLEEPING
--- NOTE | 2018-06-04 04:26 | NUR ---
24 HR chart check completed.
[2018-06-04 06:36] LABS: BUN 15 mg/dl (7-24); CHLORIDE 104 mmol/L (98-107); SODIUM 138 mmol/L (136-145)
[2018-06-04 06:38] LABS: CREATININE 0.89 mg/dL (0.70-1.30)
[2018-06-04 08:00] VITALS: BP 122/80
--- NOTE | 2018-06-04 08:00 | NUR ---
PT RESTING IN BED, NO COMPLAINTS VOICED, DENIES ANY PAIN. STATES HE IS STILL HAVING SOME DIZZINESS WITH POSITION CHANGE, BUT STATES IT IS IMPROVING. CALL LIGHT WITHIN REACH.
[2018-06-04 12:00] VITALS: BP 114/68
--- NOTE | 2018-06-04 14:32 | NUR ---
PT COMPLAINING OF JOCK ITCH, SPOKE WITH DR DESOUZA. ORDERS RECEIVED.
--- NOTE | 2018-06-04 15:51 | NUR ---
PHYSICAL THERAPY PT EVAL COMPLETED TODAY ON LEVEL 5: FULL EVALUATION TO FOLLOW: RECOMMEND PT WHILE HERE TO ADDRESS DECREASED STRENGTH , ENDURANCE AND AMBULATION. PT EVAL IS MODERATE COMPLEXITY BASED ON CHART REVIEW, TEST RESULTS AND EVALUATION: 12210. D/C RECOMMENDATIONS ARE HOME WITH HOME PT ON D/C. THANK YOU FOR REFERRAL AIDAN DUEÑAS PT
[2018-06-04 16:00] VITALS: BP 125/78
--- NOTE | 2018-06-04 16:59 | NUR ---
PT COMPLAINING OF ABD PAIN AND CRAMPING, MEDICATED WITH ULTRAM PER PRN ORDER. WILL MONITOR FOR EFFECTIVENESS.
[2018-06-04 20:00] VITALS: BP 125/77
--- NOTE | 2018-06-04 21:43 | NUR ---
ULTRAM GIVEN PER PT REQUEST FOR BACK PAIN. WILL MONITOR.
--- NOTE | 2018-06-04 23:17 | NUR ---
Pt is refusing bipap at this time
[2018-06-05] VITALS: BP 132/76
--- NOTE | 2018-06-05 09:00 | NUR ---
Animal Maintenance Supervisor in to see patient. He is getting ready to work with physical therapy. He is unsure of whether he wants to go to a SNF or home with home health. Will follow up at a later time.
--- NOTE | 2018-06-05 09:08 | NUR ---
PATIENT REQUESTED AND RECIEVED A PRN TRAMADOL FOR BACK PAIN RATED AT A 7. WILL MONITOR FOR EFFECTIVENESS.
--- NOTE | 2018-06-05 09:50 | NUR ---
PHYSICAL THERAPY Patient seen this am 1;1 for therapy visit and was supine in bed upon therapist arrival. Patient presented with resting HR 102 bpm and c/o of earlier mild dizziness upon standing up. Patient instructed on visual fixation technique, including slow rise upon initial sit to stand, performing several transfers, SBA without c/o. Patient ambulated with use of st cane, 50'x 1, CGA, demonstrating slow wendi along with "cautious" gait pattern. Patient received v/c for increased stride and improved upright posture prior to returning to EOB with mild fatigue. HR 123 bpm following gait ex and returned to 90 -94 bpm after 1 minute seated rest. Patient also performed seated B LE therex, all planes, x 15 reps each and remained EOB sit following all treatment with call light, tray table and telephone. Will continue per POC as tolerated, total treatment time. 24 minutes. Luis Fernando Altamirano, MANAGER CONFIGURATION
--- NOTE | 2018-06-05 10:00 | NUR ---
PATIENT STATES RELIEF FROM PREVIOUS PRN PAIN MED.
[2018-06-05 12:00] VITALS: BP 134/79
--- NOTE | 2018-06-05 15:06 | NUR ---
Grey Stock Recorder in to see patient. Asked how he did with PT this morning and he states he walked to the door and back with slight unsteadiness. Discussed SNF vs home health and he would like to talk to his . Will follow up with him tomorrow morning. Dr. Campbell notified.
[2018-06-05 16:00] VITALS: BP 118/74
[2018-06-05 20:00] VITALS: BP 103/80; BP 108/65
[2018-06-06] VITALS: BP 145/86
--- NOTE | 2018-06-06 01:01 | NUR ---
ULTRAM GIVEN FOR C/O BACK PAIN RATED 7/10. KRISTEN FOR SLEEP AID.
--- NOTE | 2018-06-06 01:04 | NUR ---
PATIENT STATES HE WANTS TO GO HOME WITH HOME HEALTH IF POSSIBLE.
--- NOTE | 2018-06-06 07:31 | NUR ---
ULTRAM GIVEN PER REQUEST FOR BACK PAIN.
[2018-06-06 08:00] VITALS: BP 132/78
--- NOTE | 2018-06-06 08:50 | NUR ---
Patient requesting referral to [facility]; Patient has met 3 night stay requirement; waiting on review/acceptance.
--- NOTE | 2018-06-06 09:00 | NUR ---
Blanket Weaver in to see patient. Discussed short term SNF vs home health care services. He would like to go home but understands he is too weak. He is agreeable to [facility] as it is close to his home and has been there previously. Dr. Campbell notified. When medically stable he will be discharged to home.
--- NOTE | 2018-06-06 11:44 | NUR ---
Patient accepted to [facility], 3 night stay complete, patient can go when ready for discharge.
--- NOTE | 2018-06-06 11:58 | NUR ---
Dr. Campbell to discharge patient when he make rounds after office hours. Discussed with patient and he states he doesn't have a way to get there as his doesn't drive and is in a wheelchair. [place]igon only runs at certain times. Dr. Campbell notified.
[2018-06-06 12:00] VITALS: BP 118/63
--- NOTE | 2018-06-06 14:01 | NUR ---
PATIENT SHOWERED AND HAD BED CHANGED. PATIENT REQUESTS HAVING PODIATRY CUT HIS NAILS. WILL CALL PHYSICIAN FOR CONSULT.
--- NOTE | 2018-06-06 15:02 | NUR ---
PHYSICAL THERAPY Patient presented to therapy in supine with report of only needing O2 at night and wanting to walk. Patient agrees to therapy session. Patient was identified by name and . Patient performed supine to sitting at EOB and STS transfers with SBA. Patient performed ambulation with standard cane and CGA X 1 to Close Supervision for 84' x 1 with moderate LOB MULTIPLE TIMES DURING GAIT. Patient sat on EOB and performed bilateral LE ther ex in all planes of movement 2 x 10 reps each LE for strengthening in order to improve patient's functional mobility. Patient transferred back to supine in bed with Supervision. pATIENT TRANSFERS MOD I THROUGHOUT DAY. Patient ambulates to and from restroom MOD I throughout day. Patient was left in supine with call light within reach. Patient was 1:1 with this KITCHEN WORK SUPERVISOR for 23 minutes total. RANDY CUEVA KITCHEN WORK SUPERVISOR
[2018-06-06 16:00] VITALS: BP 121/70
--- NOTE | 2018-06-06 16:52 | NUR ---
PATIENT RATES BACK PAIN AT A 7. PRN ULTRAM ADMINISTERED AT THIS TIME. WILL MONITOR FOR EFFECTIVENESS.
[2018-06-06 20:00] VITALS: BP 138/78
--- NOTE | 2018-06-06 20:05 | NUR ---
RESTING IN BED. AAOX3. SKIN WARM & DRY. LUNGS DIMINISHED WITH SCATTERED WHEEZES; OCCASIONAL DRY COUGH. ABDOMEN OBESE WITH NORMOACTIVE BOWEL SOUNDS. PT. STATES HE HAD A BM YESTERDAY & IS VOIDING WITHOUT DIFFICULTY. HEP LOCK INTACT TO LEFT ANTECUBITAL; SITE ASYMPTOMATIC. NO DISTRESS NOTED. CALL LIGHT WITHIN REACH.
--- NOTE | 2018-06-06 20:15 | NUR ---
MEDICATED WITH TYLENOL FOR C/O BACK/LEG PAIN RATED A 6/10.
[2018-06-07] VITALS: BP 143/76
--- NOTE | 2018-06-07 00:29 | NUR ---
MEDICATED WITH AMBIEN FOR C/O INSOMNIA.
--- NOTE | 2018-06-07 02:15 | NUR ---
MEDICATED WITH ULTRAM FOR C/O LEG PAIN RATED A 9/10.
--- NOTE | 2018-06-07 03:00 | NUR ---
RESTING IN BED WITH EYES CLOSED; PAIN MEDICATION GIVEN EARLIER APPARENTLY EFFECTIVE.
--- NOTE | 2018-06-07 06:30 | NUR ---
MEDICATED WITH TYLENOL FOR C/O LEG PAIN.
--- NOTE | 2018-06-07 08:47 | NUR ---
Patient is able to discharge to [facility] today; [facility] will transport at 4 PM. notified policy issue clerk.
--- NOTE | 2018-06-07 09:00 | NUR ---
Union Contract Representative in to see patient. He didn't discharge last night because he didn't have a ride. senior production planner following for transportation to [facility].
--- NOTE | 2018-06-07 09:59 | NUR ---
PT STATES HES URINATIONG FREQUESTLY AND REQUESTED BLOOD SUGAR CHECK. BLOOD SUGAR 112
--- NOTE | 2018-06-07 11:49 | NUR ---
PATIENT C/O LEG PAIN, RATES 9/10 ON PAIN SCALE. MEDICATED WITH PO PRN ULTRAM AT THIS TIME PER ORDERS, WILL MONITOR PATIENT FOR MEDICATION EFFECTIVENESS. CALL LIGHT WITHIN REACH.
[2018-06-07 12:00] VITALS: BP 111/64
--- NOTE | 2018-06-07 14:57 | NUR ---
PHYSICAL THERAPY CO-SIGN I approve of the Phyical Therapy notes written above. ELYSSA LAMBERT PT
--- NOTE | 2018-06-07 15:15 | NUR ---
Discharge instructions reviewed with patient/family. Patient receptive and verbalizes understanding. Follow-up care arranged. Written instructions given to patient/family. REPROT CALLED TO NURSE HUMPHRIES AT [facility]. ANDRES MCKEE
--- NOTE | 2018-06-08 07:32 | NUR ---
PHYSICAL THERAPY CO-SIGN I approve of the Phyical Therapy notes written above. ELYSSA LAMBERT PT
== END 2018-06-07 15:15 | disposition other institution (70) | DRG 315 ==
LOC: 5E 14:38
PROVIDERS: ADMIT Internal Medicine
DX: I95.9 Hypotension, unspecified (principal); Z68.41 Body mass index [BMI] 40.0-44.9, adult; E66.01 Morbid (severe) obesity due to excess calories; E11.42 Type 2 diabetes mellitus with diabetic polyneuropathy; G89.29 Other chronic pain; M54.5 Low back pain; E78.2 Mixed hyperlipidemia; G47.33 Obstructive sleep apnea (adult) (pediatric); E86.1 Hypovolemia; R62.7 Adult failure to thrive; I48.0 Paroxysmal atrial fibrillation; M54.2 Cervicalgia; L30.8 Other specified dermatitis; Z95.0 Presence of cardiac pacemaker; Z79.4 Long term (current) use of insulin

== ENCOUNTER 2020-08-14 16:53 | Emergency (ER) | payer MEDICARE, OTHER ==
[~2020-08-14] VITALS: Ht 175.2 cm; Wt 140.6 kg
[~2020-08-14 16:53] MED LIST changes: +CYMBALTA60 MG PO; +DILTIAZEM 24HR180 MG PO; +LISINOPRIL-HCT1 EACH PO; +TIZANIDINE HCL4 M1 PO
[2020-08-14 16:59] VITALS: BP 138/63
[2020-08-14 17:25] LABS: BASO % 0.3 % (0.0-1.0); EOS # 0.2 10*3/uL (0.0-0.4); EOS % 1.2 % (1.0-4.0); HEMATOCRIT 47.9 % (42.0-52.0); LYMPH # 1.4 10*3/uL (1.3-4.4); LYMPH % 9.7 % (27.0-41.0); MEAN CELL VOLUME 89.2 fl (80.0-94.0); MEAN CORPUSCULAR HGB 27.9 pg (27.0-31.0); MEAN CORPUSCULAR HGB CONC 31.3 g/dl (33.0-37.0); MEAN PLATELET VOLUME 8.6 fl (9.6-12.3); MONO # 1.1 10*3/uL (0.1-1.0); MONO % 7.9 % (3.0-9.0); NEUT # 11.6 10*3/uL (2.3-7.9); NEUT % 80.4 % (47.0-73.0); PLATELET COUNT AUTOMATED 371 10*3/uL (130-400); RED BLOOD COUNT 5.37 10*6/uL (4.50-5.90); RED CELL DISTRI WIDTH 15.7 % (0-14.5); WHITE BLOOD COUNT 14.4 10*3/uL (4.8-10.8)
[2020-08-14 17:42] LABS: ALBUMIN 2.9 gm/dl (3.1-4.5); ALKALINE PHOSPHATASE 95 U/L (45-117); BUN 18 mg/dl (7-24); CHLORIDE 103 mmol/L (98-107); CREATININE 1.16 mg/dL (0.70-1.30); LIPASE 84 U/L (73-393); POTASSIUM 4.4 mmol/L (3.5-5.1); SGOT/AST 8 IU/L (3-35); SGPT/ALT 17 U/L (12-78); SODIUM 136 mmol/L (136-145); TOTAL PROTEIN 7.5 gm/dL (6.4-8.2)
[2020-08-14] MEDS ORDERED: AUGMENTIN 875875 MG PO (18:16)
[2020-08-14 18:22] LABS: BILIRUBIN Negative (Negative); BLOOD Trace-Intact (Negative); CLARITY Clear (Clear); COLOR Yellow (Yellow); GLUCOSE Negative (Negative); KETONE Negative (Negative); LEUKO ESTERASE Negative (Negative); NITRITE Negative (Negative); SPECIFIC GRAVITY 1.015 (1.001-1.030)
[2020-08-14 18:23] LABS: PH 8.5 (4.5-8.0)
[2020-08-14 18:30] LABS: BACTERIA TRACE; WBC 0-2 wbc/hpf (0-5)
== END 2020-08-14 18:37 | disposition home or self-care (01) ==
LOC: ED 16:53
PROVIDERS: Emergency Medicine
DX: K57.12 Diverticulitis of small intestine without perforation or abscess without bleeding (principal); Z79.899 Other long term (current) drug therapy; Z79.82 Long term (current) use of aspirin

== ENCOUNTER 2022-06-24 18:38 | Emergency (ER) | payer OTHER ==
[~2022-06-24 18:38] MED LIST changes: +ACETAMINOPHEN325 M2 PO; +ACETAZOLAMIDE250 MG PO; +ALBUTEROL2.5 MG/0.5 NEB; +AUGMENTIN 875875 MG PO; +FUROSEMIDE20 M1 PO; +IPRATROPIU0.2 MG/1 M NEB; +RIVASTIGMINE T1.5 M1 PO
[2022-06-24 19:39] LABS: BILIRUBIN Negative (Negative); BLOOD 2+ (Negative); CLARITY Cloudy (Clear); COLOR Yellow (Yellow); GLUCOSE Negative (Negative); KETONE Negative (Negative); LEUKO ESTERASE 3+ (Negative); NITRITE Negative (Negative); PH 5.5 (4.5-8.0); SPECIFIC GRAVITY 1.025 (1.001-1.030)
[2022-06-24 19:48] LABS: BASO # 0.1 10*3/uL (0.0-0.1); BASO % 0.9 % (0.0-1.0); EOS # 0.3 10*3/uL (0.0-0.4); EOS % 3.7 % (1.0-4.0); LYMPH # 0.6 10*3/uL (1.3-4.4); LYMPH % 8.2 % (27.0-41.0); MEAN CELL VOLUME 87.7 fl (80.0-94.0); MEAN CORPUSCULAR HGB 26.9 pg (27.0-31.0); MEAN CORPUSCULAR HGB CONC 30.6 g/dl (33.0-37.0); MONO # 0.7 10*3/uL (0.1-1.0); MONO % 9.2 % (3.0-9.0); NEUT % 77.9 % (47.0-73.0); PLATELET COUNT AUTOMATED 400 10*3/uL (130-400); RED BLOOD COUNT 5.36 10*6/uL (4.50-5.90); RED CELL DISTRI WIDTH 14.8 % (0-14.5); WHITE BLOOD COUNT 7.7 10*3/uL (4.8-10.8)
[2022-06-24 19:49] LABS: BACTERIA 2+; RBC 16-20 rbc/hpf (0-2); WBC 41-50 wbc/hpf (0-5)
[2022-06-24 20:05] LABS: ALKALINE PHOSPHATASE 96 U/L (46-116); BUN 26 mg/dl (9-23); CHLORIDE 98 mmol/L (98-107); POTASSIUM 3.4 mmol/L (3.4-5.1); SGPT/ALT 15 U/L (10-49)
[2022-06-24] MEDS ORDERED: SEPTDS PO ×2 (20:29→20:49)
[2022-06-24 20:45] VITALS: BP 100/50
== END 2022-06-24 20:56 ==
LOC: ED 18:38
PROVIDERS: Physician Assistant
DX: N39.0 Urinary tract infection, site not specified (principal); Z79.899 Other long term (current) drug therapy; Z90.89 Acquired absence of other organs; Z98.890 Other specified postprocedural states; Z87.891 Personal history of nicotine dependence

== ENCOUNTER 2023-11-30 07:52 | Emergency (ER) | payer OTHER ==
[~2023-11-30 07:52] MED LIST changes: +SEPTDS PO
[2023-11-30 07:54] VITALS: BP 106/61
== END 2023-11-30 09:16 | disposition home or self-care (01) ==
LOC: ED 07:52
DX: S50.312A Abrasion of left elbow, initial encounter (principal); M25.562 Pain in left knee; M25.561 Pain in right knee; Z79.2 Long term (current) use of antibiotics; Z79.899 Other long term (current) drug therapy; Z95.0 Presence of cardiac pacemaker; Z98.890 Other specified postprocedural states; Z90.89 Acquired absence of other organs; Z87.891 Personal history of nicotine dependence; W06.XXXA Fall from bed, initial encounter; Y93.89 Activity, other specified; Y92.128 Other place in nursing home as the place of occurrence of the external cause; Y99.8 Other external cause status

== ENCOUNTER 2024-02-13 19:28 | Emergency (ER) | payer OTHER ==
[~2024-02-13] VITALS: Wt 147.6 kg
[2024-02-13 19:32] VITALS: BP 117/70
== END 2024-02-13 21:02 | disposition home or self-care (01) ==
LOC: ED 19:28
DX: Z00.00 Encounter for general adult medical examination without abnormal findings (principal); I10 Essential (primary) hypertension; I48.91 Unspecified atrial fibrillation; E78.00 Pure hypercholesterolemia, unspecified; E11.40 Type 2 diabetes mellitus with diabetic neuropathy, unspecified; J45.909 Unspecified asthma, uncomplicated; Z90.89 Acquired absence of other organs; Z98.890 Other specified postprocedural states; Z87.891 Personal history of nicotine dependence

== ENCOUNTER 2025-02-14 14:30 | Inpatient (IN) | payer OTHER ==
[~2025-02-14] VITALS: Ht 175.2 cm; Wt 147.9 kg
[~2025-02-14 14:30] MED LIST changes: +AMOXICILLIN500 M3 PO; +ATORVASTATIN CA40 M1 PO; +AZITHROMYCIN500 M2 PO; +BISACODYL10 MG R; +BREO ELLIPTA 21 EACH INH; +DULOXETINE HCL30 MG PO; +DULOXETINE HCL60 MG PO; +GABAPENTIN100 M2 PO; +HYDROXYZINE PAM50 MG PO; +Ipratropium Brom3 ML INH; +LASIX20 MG PO; +Lopressor25 MG PO; +MEMANTINE HCL5 MG PO; +MILK OF MA2400 MG/11 PO; +NYAMYC15 GM T; +OMNICEF300 MG PO; +POTASSIUM CHLO20 ME4 PO; +RIVASTIGMINE TAR3 M1 PO; +SKIN TREATMENT400 GM T; +VITAMIN D350 MCG PO; +XARELTO20 M1 PO
[2025-02-14 14:35] VITALS: BP 124/82
[2025-02-14 15:14] LABS: BILIRUBIN Negative (Negative); BLOOD Trace-Intact (Negative); CLARITY Turbid (Clear); COLOR Yellow (Yellow); KETONE Negative (Negative); LEUKO ESTERASE Negative (Negative); NITRITE Negative (Negative); PH 5.5 (4.5-8.0); SPECIFIC GRAVITY 1.020 (1.001-1.030); UROBILINOGEN 1.0 E.U./dl (0.0-1.0)
[2025-02-14 15:50] LABS: BACTERIA 1+; MUCOUS TRACE; URIC ACID CRYSTALS 3+; WBC 0-2 wbc/hpf (0-5)
[2025-02-14 15:51] LABS: BASO # 0.1 10*3/uL (0.0-0.1); BASO % 0.6 % (0.0-1.0); EOS # 0.3 10*3/uL (0.0-0.4); EOS % 2.6 % (1.0-4.0); MEAN CELL VOLUME 82.0 fl (80.0-94.0); MEAN CORPUSCULAR HGB 23.2 pg (27.0-31.0); MEAN PLATELET VOLUME 8.7 fl (9.6-12.3); MONO # 0.8 10*3/uL (0.1-1.0); MONO % 8.2 % (3.0-9.0); NEUT # 7.8 10*3/uL (2.3-7.9); NEUT % 76.2 % (47.0-73.0); NUCLEATED RED BLOOD CELL 0.0 % (0.0-0.0); NUCLEATED RED BLOOD CELL 0.0 10*3/uL (0.0-0.0); PLATELET COUNT AUTOMATED 373 10*3/uL (130-400); RED CELL DISTRI WIDTH 18.8 % (0-14.5)
[2025-02-14 16:14] LABS: BUN 17 mg/dl (9-23)
[2025-02-14 16:40] LABS: ABG O2 SATURATION 97.4 % (94.0-98.0); ARTERIAL BLOOD GAS PH 7.355 (7.350-7.450); ARTERIAL BLOOD GAS PO2 98.0 mmHg (83.0-108.0)
[2025-02-14 16:46] LABS: ABG BASE EXCESS 5.9 mmol/L (-2.0-3.0)
[2025-02-14] MEDS ORDERED: Albuterol Sulf/Ipratropium 3 ML VIAL NEB ONE (16:55)
[2025-02-14] MEDS ORDERED: Water, Sterile 10 ML VIAL ONE (18:32)
[2025-02-14 18:33] VITALS: BP 137/72
[2025-02-14] MEDS ORDERED: ACETAMINOPHEN 325 MG TAB PO PRN (18:35)
[2025-02-14] MEDS ORDERED: Ondansetron Hydrochloride 4 MG/2 ML VIAL IV PRN (18:35)
[2025-02-14] MEDS ORDERED: BISACODYL 5 MG TAB PO PRN (18:35)
[2025-02-14 19:50] VITALS: BP 147/69
[2025-02-14] MEDS ORDERED: MILK OF MA400 MG/5 M PO (20:31)
[2025-02-14] MEDS ORDERED: FLEET ENEMA 13133 ML R (20:33)
[2025-02-14 21:21] LABS: ABG O2 SATURATION 96.5 % (94.0-98.0); ARTERIAL BLOOD GAS PH 7.307 (7.350-7.450); ARTERIAL BLOOD GAS PO2 88.1 mmHg (83.0-108.0)
[2025-02-14 21:24] LABS: ABG BASE EXCESS 3.5 mmol/L (-2.0-3.0)
[2025-02-14] MEDS ORDERED: LEVETIRACETAM 3,500 MG in SODIUM CHLORIDE 0.9% 250 ML IV ONE (22:00)
[2025-02-14] MEDS ORDERED: RIVAROXABAN 20 MG TAB PO SCH (22:00)
[2025-02-14] MEDS ORDERED: IOHEXOL 350 MG/ML 100 ML VIAL IV ONE (22:15)
[2025-02-14] MEDS ORDERED: SODIUM CHLORIDE 0.9% 100 ML BAG IV ONE (22:15)
[2025-02-15 00:45] VITALS: BP 100/70
[2025-02-15 06:07] LABS: MEAN CELL VOLUME 82.2 fl (80.0-94.0); MEAN CORPUSCULAR HGB 22.8 pg (27.0-31.0); MEAN PLATELET VOLUME 9.2 fl (9.6-12.3); NUCLEATED RED BLOOD CELL 0.0 % (0.0-0.0); NUCLEATED RED BLOOD CELL 0.0 10*3/uL (0.0-0.0); PLATELET COUNT AUTOMATED 369 10*3/uL (130-400); RED CELL DISTRI WIDTH 18.9 % (0-14.5)
[2025-02-15 06:13] LABS: ACT PARTIAL THROMBO TIME 31.2 SECONDS (20.0-32.1); MANUAL DIFF REFLEX YES
[2025-02-15 06:44] LABS: VITAMIN D, 25-HYDROXY 53.3 ng/mL (30-100)
[2025-02-15 06:45] LABS: BUN 17 mg/dl (9-23); FREE T4 1.05 ng/dl (0.89-1.76); LDL CHOLESTEROL 57 mg/dL (9-159); SGPT/ALT 8 U/L (5-49)
[2025-02-15 07:18] LABS: PLATELET SUFFICIENCY NORMAL (NORMAL)
[2025-02-15 08:00] VITALS: BP 101/84
[2025-02-15] MEDS ORDERED: AZITHROMYCIN 250 ML IV SCH (10:00)
[2025-02-15] MEDS ORDERED: LEVETIRACETAM IN NACL (ISO-OS) 100 ML IV SCH (10:00)
[2025-02-15] MEDS ORDERED: MICONAZOLE NITRATE 2% 75 GM BOT T SCH (11:07)
[2025-02-15 12:00] VITALS: BP 109/42
== END 2025-02-15 15:30 | DRG 871 ==
LOC: ED 14:30 → 4E 18:15 → EDHOLD 18:15 → 4E 19:22
PROVIDERS: Emergency Medicine; ADMIT Internal Medicine; ATTEND Internal Medicine
PROC: 5A09357 Assistance with Respiratory Ventilation, Less than 24 Consecutive Hours, Continuous Positive Airway Pressure (ICD-10-PCS; principal; 2025-02-14)
PROC: 5A09357 Assistance with Respiratory Ventilation, Less than 24 Consecutive Hours, Continuous Positive Airway Pressure (ICD-10-PCS; 2025-02-14)
DX: A41.9 Sepsis, unspecified organism (principal); G93.41 Metabolic encephalopathy; J96.22 Acute and chronic respiratory failure with hypercapnia; N17.0 Acute kidney failure with tubular necrosis; N30.00 Acute cystitis without hematuria; I50.32 Chronic diastolic (congestive) heart failure; Z68.42 Body mass index [BMI] 45.0-49.9, adult; F03.90 Unspecified dementia, unspecified severity, without behavioral disturbance, psychotic disturbance, mood disturbance, and anxiety; Z66 Do not resuscitate; J45.909 Unspecified asthma, uncomplicated; E78.5 Hyperlipidemia, unspecified; I11.0 Hypertensive heart disease with heart failure; F32.9 Major depressive disorder, single episode, unspecified; E66.9 Obesity, unspecified; R65.20 Severe sepsis without septic shock; I48.0 Paroxysmal atrial fibrillation; E11.42 Type 2 diabetes mellitus with diabetic polyneuropathy; G47.33 Obstructive sleep apnea (adult) (pediatric); Z79.899 Other long term (current) drug therapy; Z79.01 Long term (current) use of anticoagulants; Z79.2 Long term (current) use of antibiotics; Z95.0 Presence of cardiac pacemaker; Z87.891 Personal history of nicotine dependence

== ENCOUNTER 2025-02-15 13:45 | Inpatient (IN) | payer OTHER ==
[~2025-02-15] VITALS: Ht 175.2 cm; Wt 136.3 kg
[~2025-02-15 13:45] MED LIST changes: +FLEET ENEMA 13133 ML R; +MILK OF MA400 MG/5 M PO
[2025-02-15 16:04] VITALS: BP 126/64
[2025-02-15] MEDS ORDERED: LORazepam 1 MG TAB PO PRN (16:10)
[2025-02-15] MEDS ORDERED: hydrOXYzine hydrochloride 50 MG/ML VIAL IM PRN (16:10)
[2025-02-15] MEDS ORDERED: Water, Sterile 10 ML VIAL IM PRN (16:15)
[2025-02-15] MEDS ORDERED: ACETAMINOPHEN 325 MG TAB PO PRN (16:25)
[2025-02-15] MEDS ORDERED: MG-AL HYDROXIDE/SIMETICONE 30 ML UDC PO PRN (16:25)
[2025-02-15] MEDS ORDERED: Menthol/Zinc Oxide 4 GM THIN T PRN (16:35)
[2025-02-15 20:00] VITALS: BP 126/76
[2025-02-15] MEDS ORDERED: RIVAROXABAN 20 MG TAB PO SCH (21:00)
[2025-02-15] MEDS ORDERED: ATORVASTATIN CALCIUM 40 MG TABLET PO SCH (21:00)
[2025-02-15] MEDS ORDERED: FUROSEMIDE 20 MG TAB PO SCH (21:00)
[2025-02-15] MEDS ORDERED: GABAPENTIN 100 MG CAP PO SCH (21:00)
[2025-02-15] MEDS ORDERED: acetaZOLAMIDE 250 MG TAB PO SCH (23:00)
[2025-02-16 05:28] LABS: BILIRUBIN Negative (Negative); BLOOD Negative (Negative); CLARITY Clear (Clear); COLOR Yellow (Yellow); KETONE Trace (Negative); LEUKO ESTERASE Trace (Negative); NITRITE Negative (Negative); PH 5.5 (4.5-8.0); SPECIFIC GRAVITY >= 1.030 (1.001-1.030); UROBILINOGEN 1.0 E.U./dl (0.0-1.0)
[2025-02-16 05:54] LABS: BACTERIA 1+; HYALINE CAST 0-2
[2025-02-16 06:13] LABS: BUN 23 mg/dl (9-23); LDL CHOLESTEROL 53 mg/dL (9-159)
[2025-02-16 06:29] LABS: BASO # 0.0 10*3/uL (0.0-0.1); BASO % 0.1 % (0.0-1.0); EOS # 0.0 10*3/uL (0.0-0.4); EOS % 0.0 % (1.0-4.0); MEAN CELL VOLUME 81.1 fl (80.0-94.0); MEAN CORPUSCULAR HGB 23.6 pg (27.0-31.0); MEAN PLATELET VOLUME 9.1 fl (9.6-12.3); MONO # 0.8 10*3/uL (0.1-1.0); MONO % 5.1 % (3.0-9.0); NEUT # 13.2 10*3/uL (2.3-7.9); NEUT % 87.9 % (47.0-73.0); NUCLEATED RED BLOOD CELL 0.0 % (0.0-0.0); NUCLEATED RED BLOOD CELL 0.0 10*3/uL (0.0-0.0); PLATELET COUNT AUTOMATED 386 10*3/uL (130-400); RED CELL DISTRI WIDTH 18.8 % (0-14.5)
[2025-02-16 06:41] LABS: SGPT/ALT < 7 U/L (5-49)
[2025-02-16 07:23] LABS: VITAMIN D, 25-HYDROXY 54.9 ng/mL (30-100)
[2025-02-16 08:00] VITALS: BP 113/66
[2025-02-16] MEDS ORDERED: Cholecalciferol 2,000 UNIT TABLET (50 MCG) PO SCH (09:00)
[2025-02-16] MEDS ORDERED: POTASSIUM CHLORIDE 20 MEQ TAB PO SCH (09:00)
[2025-02-16 20:00] VITALS: BP 109/71
[2025-02-17 08:35] VITALS: BP 107/56
[2025-02-17 20:00] VITALS: BP 132/82
[2025-02-18 06:24] LABS: BASO # 0.0 10*3/uL (0.0-0.1); BASO % 0.5 % (0.0-1.0); EOS # 0.3 10*3/uL (0.0-0.4); EOS % 4.2 % (1.0-4.0); MEAN CELL VOLUME 81.0 fl (80.0-94.0); MEAN CORPUSCULAR HGB 22.9 pg (27.0-31.0); MEAN PLATELET VOLUME 8.7 fl (9.6-12.3); MONO # 0.7 10*3/uL (0.1-1.0); MONO % 8.7 % (3.0-9.0); NEUT # 5.6 10*3/uL (2.3-7.9); NEUT % 68.9 % (47.0-73.0); NUCLEATED RED BLOOD CELL 0.0 % (0.0-0.0); NUCLEATED RED BLOOD CELL 0.0 10*3/uL (0.0-0.0); PLATELET COUNT AUTOMATED 373 10*3/uL (130-400); RED CELL DISTRI WIDTH 19.9 % (0-14.5)
[2025-02-18 06:57] LABS: BUN 19 mg/dl (9-23)
[2025-02-18 08:00] VITALS: BP 129/68
[2025-02-18] MEDS ORDERED: POTASSIUM CHLORIDE 20 MEQ TAB PO ONE (08:30)
[2025-02-18] MEDS ORDERED: MICONAZOLE NITRATE 2% 75 GM BOT T PRN (14:50)
[2025-02-18] MEDS ORDERED: FOAM BANDAGE 1 EACH BANDAGE T ONE (15:43)
[2025-02-18] MEDS ORDERED: HEEL PROTECTOR DEVICE ONE (15:43)
[2025-02-18 20:00] VITALS: BP 127/86
[2025-02-18] MEDS ORDERED: RAMELTEON 8 MG TAB PO SCH (21:00)
[2025-02-19 08:00] VITALS: BP 117/95
[2025-02-19 20:00] VITALS: BP 130/89
[2025-02-19] MEDS ORDERED: ZOLPIDEM TARTRATE 5 MG TAB PO SCH (21:00)
[2025-02-20 08:43] VITALS: BP 112/81
[2025-02-20 20:00] VITALS: BP 103/60
[2025-02-21 08:04] VITALS: BP 109/85
[2025-02-21] MEDS ORDERED: GABAPENTIN 100 MG CAP PO SCH (14:00)
[2025-02-21 20:00] VITALS: BP 112/71
[2025-02-22 07:52] VITALS: BP 113/79
[2025-02-22 12:56] LABS: BASO # 0.1 10*3/uL (0.0-0.1); BASO % 0.5 % (0.0-1.0); EOS # 0.4 10*3/uL (0.0-0.4); EOS % 4.2 % (1.0-4.0); MEAN CELL VOLUME 82.5 fl (80.0-94.0); MEAN CORPUSCULAR HGB 23.1 pg (27.0-31.0); MEAN PLATELET VOLUME 8.9 fl (9.6-12.3); MONO # 0.7 10*3/uL (0.1-1.0); MONO % 7.2 % (3.0-9.0); NEUT # 7.2 10*3/uL (2.3-7.9); NEUT % 74.4 % (47.0-73.0); NUCLEATED RED BLOOD CELL 0.0 % (0.0-0.0); NUCLEATED RED BLOOD CELL 0.0 10*3/uL (0.0-0.0); PLATELET COUNT AUTOMATED 384 10*3/uL (130-400); RED CELL DISTRI WIDTH 18.6 % (0-14.5)
[2025-02-22 13:30] LABS: BUN 13 mg/dl (9-23); SGPT/ALT 7 U/L (5-49)
[2025-02-22 20:00] VITALS: BP 119/56
[2025-02-23 08:00] VITALS: BP 110/87
[2025-02-23 20:00] VITALS: BP 105/82
[2025-02-24 08:00] VITALS: BP 123/53
[2025-02-24 16:20] LABS: BILIRUBIN Negative (Negative); BLOOD Negative (Negative); CLARITY Clear (Clear); COLOR Yellow (Yellow); KETONE Negative (Negative); LEUKO ESTERASE Negative (Negative); NITRITE Negative (Negative); PH 6.5 (4.5-8.0); SPECIFIC GRAVITY 1.015 (1.001-1.030); UROBILINOGEN 1.0 E.U./dl (0.0-1.0)
[2025-02-24 16:33] LABS: MUCOUS 1+
[2025-02-24 20:11] VITALS: BP 114/72
[2025-02-25 08:28] VITALS: BP 99/77
[2025-02-25] MEDS ORDERED: DULOXETINE HCL30 MG PO ×2 (09:46)
[2025-02-25] MEDS ORDERED: MEMANTINE HCL10 MG PO (09:46)
[2025-02-25] MEDS ORDERED: GABAPENTIN100 M2 PO (09:46)
[2025-02-25] MEDS ORDERED: QUETIAPINE FUM100 M3 PO (09:46)
[2025-02-25] MEDS ORDERED: RIVASTIGMINE TAR3 M1 PO (09:46)
== END 2025-02-25 11:32 | DRG 885 ==
LOC: 3N 13:45
PROVIDERS: Counselor Professional; ADMIT Psychiatry & Neurology Psychiatry; ATTEND Psychiatry & Neurology Psychiatry
PROC: GZHZZZZ Group Psychotherapy (ICD-10-PCS; principal; 2025-02-17)
DX: F33.3 Major depressive disorder, recurrent, severe with psychotic symptoms (principal); J96.22 Acute and chronic respiratory failure with hypercapnia; E11.65 Type 2 diabetes mellitus with hyperglycemia; N39.0 Urinary tract infection, site not specified; E44.0 Moderate protein-calorie malnutrition; Z68.41 Body mass index [BMI] 40.0-44.9, adult; I50.32 Chronic diastolic (congestive) heart failure; D64.9 Anemia, unspecified; E66.813 Obesity, class 3; E11.40 Type 2 diabetes mellitus with diabetic neuropathy, unspecified; D72.829 Elevated white blood cell count, unspecified; E55.9 Vitamin D deficiency, unspecified; G30.9 Alzheimer's disease, unspecified; F02.80 Dementia in other diseases classified elsewhere, unspecified severity, without behavioral disturbance, psychotic disturbance, mood disturbance, and anxiety; J45.909 Unspecified asthma, uncomplicated; E78.5 Hyperlipidemia, unspecified; G47.30 Sleep apnea, unspecified; R41.0 Disorientation, unspecified; I48.0 Paroxysmal atrial fibrillation; Z79.4 Long term (current) use of insulin; Z79.01 Long term (current) use of anticoagulants; Z95.0 Presence of cardiac pacemaker